=== PATIENT | female | born 1970 | race Caucasian/White ===

== ENCOUNTER 2018-02-01 13:47 | Emergency (ER) | payer MEDICAID ==
[~2018-02-01] VITALS: Ht 160 cm; Wt 65.0 kg
[2018-02-01] MEDS ORDERED: ALBU18HF2 INH (14:11)
[2018-02-01 15:40] VITALS: BP 124/74
== END 2018-02-01 15:35 | disposition home or self-care (01) ==
LOC: ER 14:03
DX: J20.9 Acute bronchitis, unspecified (principal); J45.909 Unspecified asthma, uncomplicated; Z87.01 Personal history of pneumonia (recurrent)
CPT/HCPCS: 71045; 99283

== ENCOUNTER 2023-08-02 10:51 | Inpatient (IN) | payer MEDICAID ==
[2023-07-29 11:47] LABS: BASOPHILS % (AUTO) 0.5 % (0-1); EOSINOPHILS # (AUTO) 0.1 X10'3 (0-0.9); EOSINOPHILS % (AUTO) 1.6 % (0-6); LYMPHOCYTES # (AUTO) 2.1 X10'3 (1.1-4.8); MEAN CORPUSCULAR HEMOGLOBIN 30.9 PG (27.0-31.0); MEAN CORPUSCULAR HGB CONC 33.3 g/dL (33.0-36.5); MEAN CORPUSCULAR VOLUME 93.1 FL (78-98); MEAN PLATELET VOLUME 7.3 FL (7.4-10.4); MONOCYTES # (AUTO) 0.4 X10'3 (0-0.9); MONOCYTES % (AUTO) 4.9 % (2-12); NEUTROPHILS # (AUTO) 5.7 X10'3 (1.8-7.7); PRE OP HEMATOCRIT 39.9 % (35.0-45.0); PRE OP HEMOGLOBIN 13.3 g/dL (12.0-16.0); PRE OP PLATELET COUNT 280 X10'3 (140-440); PRE OP WHITE BLOOD COUNT 8.4 10'3 (4.8-10.8); RED BLOOD COUNT 4.29 X10'6 (4.20-5.60)
[2023-07-29 12:09] LABS: ALBUMIN/GLOBULIN RATIO 1.1 (1.1-1.5); ALKALINE PHOSPHATASE 77 IU/L (46-116); BLOOD UREA NITROGEN 15 MG/DL (7-18); BUN/CREATININE RATIO 17.6 (10.0-20.0); CALCIUM 8.9 MG/DL (8.5-10.1); CHLORIDE 103 MMOL/L (99-107); CREATININE 0.85 MG/DL (0.40-0.90); PRE OP ALT 23 U/L (30-65); PRE OP ANION GAP 10 (8-16); PRE OP AST 17 U/L (10-37); PRE OP BILIRUB, TOTAL 0.3 MG/DL (0.0-1.0); PRE OP GLUCOSE 104 MG/DL (70-104); PRE OP POTASSIUM 3.5 MMOL/L (3.4-5.1); PRE OP SODIUM 141 MMOL/L (135-145); TOTAL CARBON DIOXIDE 27.8 MMOL/L (24-32); TOTAL PROTEIN 7.5 G/DL (6.4-8.2); eGFR 71 ML/MIN
[~2023-08-02] VITALS: Ht 160 cm; Wt 77.1 kg
[2023-08-02] VITALS (27 sets, daily range): BP systolic 125–177; BP diastolic 70–95; PULSE 67–96; RESP 11–20; TEMP 97.9–98.3; O2SAT 90–98
[2023-08-02] MEDS: albuterol 2.5 MG/3 ML nebule NEB ONE (05:30)
[~2023-08-02 10:51] MED LIST: BUDE10.2 INH; DESV50TA PO; ESTR0.6261 PO; GABA-535 PO; LEVO50CA4 PO; OMEP20TA43 PO; TIOT18CA3 INH
[2023-08-02] MEDS ORDERED: labetalol 20mg/4ml (5mg/ml) syringe IV PRN (12:25)
[2023-08-02] MEDS ORDERED: morphine 2 MG/ML inj. syringe IV PRN (12:25)
[2023-08-02] MEDS ORDERED: fentaNYL/PF 50MCG/1 ML 2ML syringe IV PRN (12:25)
[2023-08-02] MEDS: ringers solution, lacted 1,000 ML IV SCH ×2 (12:25→13:46)
[2023-08-02] MEDS: cefazolin 2gm/D5W 100mL 100 ML IV ONE (13:45)
[2023-08-02] MEDS: famotidine 20mg tablet PO ONE (13:46)
[2023-08-02] MEDS ORDERED: BUPIVAcaine/PF 2.5mg/ml (0.25%) 10ml vial ONE (14:34)
[2023-08-02] MEDS ORDERED: LIDOcaine 1% (10mg/ml)w/preservative inj. 20ml MDV ONE (14:34)
[2023-08-02] MEDS ORDERED: sevoflurane 250ml liquid IH ONE (15:07)
[2023-08-02] MEDS ORDERED: rocuronium 10mg/ml inj IV ONE ×2 (15:10)
[2023-08-02] MEDS ORDERED: midazolam 1 mg/ML 2ml injection ONE (15:10)
[2023-08-02] MEDS ORDERED: LIDOcaine 2% (20mg/ml) 5ml vial ONE (15:10)
[2023-08-02] MEDS ORDERED: ondansetron/PF 4mg/2ml inj ONE (15:10)
[2023-08-02] MEDS ORDERED: propofol inj 20 ML IV ONE (15:10)
[2023-08-02] MEDS ORDERED: fentaNYL /PF 50mcg/ml 5ml ampule ONE (15:10)
[2023-08-02] MEDS ORDERED: acetaminophen 1,000mg/100ml IV 100 ML IV ONE (15:11)
[2023-08-02] MEDS: BUPIVAcaine/PF 2.5mg/ml (0.25%) 10ml vial IJ ONE (15:30)
[2023-08-02] MEDS ORDERED: labetalol 20mg/4ml (5mg/ml) syringe IV ONE (15:41)
[2023-08-02] MEDS ORDERED: sugammadex 200mg/2ml injection IV ONE (16:54)
[2023-08-02] MEDS ORDERED: naloxone 0.4 mg/ml inj IV PRN (17:10)
[2023-08-02] MEDS: morphine 4 MG/ML inj SYRINge IV PRN (17:18)
[2023-08-02] MEDS: ondansetron/PF 4mg/2ml inj IV PRN ×2 (17:31→23:18)
[2023-08-02] MEDS: fentaNYL/PF 50MCG/1 ML 2ML syringe IV PRN (17:31)
[2023-08-02] MEDS: HYDROmorph/NS 0.2 mg/ml PCA 100 ML IV SCH (18:02)
[2023-08-02] MEDS: hydrALAZINE 20mg/ml inj. IV PRN (18:07)
[2023-08-02] MEDS ORDERED: BUDESONIDE 180 MCG AER.POW.BA INH SCH (20:00)
[2023-08-02] MEDS: budesonide 0.5mg/2ml UD nebule IH SCH (20:08)
[2023-08-02] MEDS: normal saline 1000ml 1,000 ML IV SCH (20:27)
[2023-08-02] MEDS: gabapentin 400mg capsule PO SCH (23:18)
[2023-08-03 02:00] VITALS: BP 127/74; PULSE 77; RESP 16; TEMP 98.1; O2SAT 94
[2023-08-03 06:50] VITALS: BP 125/71; PULSE 85; RESP 14; TEMP 97.6; O2SAT 95
[2023-08-03 07:30] VITALS: RESP 14; O2SAT 95
[2023-08-03] MEDS ORDERED: proCHLORperazine 10 MG/2 ml inj IM ONE (07:50)
[2023-08-03 07:54] VITALS: PULSE 79; RESP 18; O2SAT 98
[2023-08-03 07:59] VITALS: PULSE 87; RESP 16
[2023-08-03] MEDS: oxyCODONE/APAP 5-325mg tablet PO ONE (08:14)
[2023-08-03] MEDS: levoTHYROXINE 25mcg tablet PO SCH (08:15)
[2023-08-03] MEDS: pantoprazole 40mg Tablet.DR PO SCH (08:15)
[2023-08-03] MEDS: venlafaxine 25mg tablet PO SCH (08:15)
[2023-08-03] MEDS: proCHLORperazine 10 MG/2 ml inj IV ONE (08:20)
[2023-08-03] MEDS: PCA WASTE DOCUMENTATION 1 MG ML MC SCH (08:38)
[2023-08-03 12:07] VITALS: BP 120/58; PULSE 78; RESP 14; TEMP 98.4; O2SAT 93
[2023-08-03] MEDS ORDERED: OXYC-145 PO (12:27)
[2023-08-04] MEDS ORDERED: ESTROGEN CONJUGATED 0.9 MG PO SCH (08:00)
== END 2023-08-03 15:25 | disposition home or self-care (01) | DRG 220 ==
LOC: PAS IN 12:14 → INTOOBSV 12:14 → UNDOADMOB 12:14 → OBSVTOIN 17:19 → SUR 3N 17:19 → PAS IN 19:00
PROVIDERS: ADMIT Surgery; ATTEND Surgery
PROC: 8E0W4CZ Robotic Assisted Procedure of Trunk Region, Percutaneous Endoscopic Approach (ICD-10-PCS; 2023-08-02)
PROC: 0BUT4JZ Supplement Diaphragm with Synthetic Substitute, Percutaneous Endoscopic Approach (ICD-10-PCS; principal; 2023-08-02 15:07)
DX: K44.9 Diaphragmatic hernia without obstruction or gangrene (principal); E03.9 Hypothyroidism, unspecified; F32.A Depression, unspecified; J45.909 Unspecified asthma, uncomplicated; K21.9 Gastro-esophageal reflux disease without esophagitis; I10 Essential (primary) hypertension; Z91.040 Latex allergy status; Z91.09 Other allergy status, other than to drugs and biological substances; Z88.2 Allergy status to sulfonamides; Z84.89 Family history of other specified conditions; Z80.8 Family history of malignant neoplasm of other organs or systems; Z82.49 Family history of ischemic heart disease and other diseases of the circulatory system; Z79.51 Long term (current) use of inhaled steroids
CPT/HCPCS: 36415; 71045; 80053; 82948; 85025; 87081; 93005; 94640; 94760; A4615; A4618; C1781; G0378; J0131; J0360; J0690; J0780; J1100; J1170; J2250; J2270; J2405; J2704; J3010; J3490; J7030; J7120

== ENCOUNTER 2023-09-21 10:55 | Emergency (ER) | payer MEDICAID ==
[~2023-09-21] VITALS: Ht 160 cm; Wt 69.4 kg
[~2023-09-21 10:55] MED LIST changes: +OXYC-145 PO
[2023-09-21 11:03] VITALS: BP 144/88; PULSE 83; RESP 16; TEMP 97.7; O2SAT 97
== END 2023-09-21 13:58 | disposition left against medical advice (07) ==
LOC: ER 10:55
DX: B37.89 Other sites of candidiasis (principal); Z88.2 Allergy status to sulfonamides; Z91.048 Other nonmedicinal substance allergy status; Z91.040 Latex allergy status; Z53.21 Procedure and treatment not carried out due to patient leaving prior to being seen by health care provider

== ENCOUNTER 2024-02-07 08:32 | Outpatient (CLI) | payer MEDICAID ==
[2024-02-07] MEDS ORDERED: regadenoson 0.4mg/5ml syringe IV ONE (10:15)
[2024-02-07] MEDS: sincalide inj 1.4 MCG in normal saline 100ml IV soln 98.6 ML IV ONE (11:25)
== END 2024-02-07 23:59 | disposition home or self-care (01) ==
LOC: NM 08:32
PROVIDERS: ATTEND Surgery
DX: K80.50 Calculus of bile duct without cholangitis or cholecystitis without obstruction (principal); R10.13 Epigastric pain
CPT/HCPCS: 78227; A9537; J2805

== ENCOUNTER 2024-03-22 12:18 | Day surgery (SDC) | payer MEDICAID ==
[2024-03-19 10:53] LABS: BASOPHILS % (AUTO) 0.7 % (0-1); EOSINOPHILS # (AUTO) 0.1 X10'3 (0-0.9); EOSINOPHILS % (AUTO) 2.4 % (0-6); LYMPHOCYTES # (AUTO) 1.9 X10'3 (1.1-4.8); LYMPHOCYTES % (AUTO) 37.4 % (21-51); MEAN CORPUSCULAR HGB CONC 33.8 g/dL (33.0-36.5); MEAN CORPUSCULAR VOLUME 94.5 FL (78-98); MEAN PLATELET VOLUME 7.2 FL (7.4-10.4); MONOCYTES # (AUTO) 0.3 X10'3 (0-0.9); MONOCYTES % (AUTO) 5.5 % (2-12); NEUTROPHILS # (AUTO) 2.8 X10'3 (1.8-7.7); PRE OP HEMATOCRIT 39.2 % (35.0-45.0); PRE OP HEMOGLOBIN 13.3 g/dL (12.0-16.0); PRE OP PLATELET COUNT 256 X10'3 (140-440); PRE OP WHITE BLOOD COUNT 5.2 10'3 (4.8-10.8); RED BLOOD COUNT 4.15 X10'6 (4.20-5.60); RED CELL DISTRIBUTION WIDTH 12.9 % (11.5-14.5)
[2024-03-19 11:23] LABS: ALBUMIN/GLOBULIN RATIO 1.3 (1.1-1.5); ALKALINE PHOSPHATASE 81 IU/L (46-116); BLOOD UREA NITROGEN 11 MG/DL (7-18); BUN/CREATININE RATIO 14.7 (10.0-20.0); CHLORIDE 111 MMOL/L (99-107); CREATININE 0.75 MG/DL (0.40-0.90); PRE OP ALT 21 U/L (30-65); PRE OP ANION GAP 8 (8-16); PRE OP AST 13 U/L (10-37); PRE OP BILIRUB, TOTAL 0.4 MG/DL (0.0-1.0); PRE OP GLUCOSE 102 MG/DL (70-104); PRE OP POTASSIUM 4.3 MMOL/L (3.4-5.1); PRE OP SODIUM 144 MMOL/L (135-145); TOTAL CARBON DIOXIDE 24.6 MMOL/L (24-32); TOTAL PROTEIN 7.1 G/DL (6.4-8.2); eGFR 81 ML/MIN
[~2024-03-22] VITALS: Ht 160 cm; Wt 63.0 kg
[2024-03-22] VITALS (10 sets, daily range): BP systolic 98–144; BP diastolic 72–84; PULSE 70–89; RESP 12–22; TEMP 97.6; O2SAT 96–100
[~2024-03-22 12:18] MED LIST changes: +ALEN70TA80 PO; -OMEP20TA43 PO; -OXYC-145 PO; -TIOT18CA3 INH; +TIOT18CA8 PO; +TOP100T PO; +glucagon, human recombinant 1mg kit ONE; +ringers solution, lacted 1,000 ML IV SCH
[2024-03-22] MEDS: ceFAZolin 2gm in dextrose, iso 50 ML IV ONE (12:36)
[2024-03-22] MEDS: famotidine 20mg tablet PO ONE (14:53)
[2024-03-22] MEDS ORDERED: midazolam 1 mg/ML 2ml injection ONE (14:56)
[2024-03-22] MEDS ORDERED: fentaNYL/PF 50MCG/1 ML 2ML syringe ONE ×2 (14:56→15:16)
[2024-03-22] MEDS ORDERED: propofol inj 20 ML IV ONE ×2 (14:57→15:28)
[2024-03-22] MEDS: meperidine/PF 25mg/ml syringe IV ONE (16:31)
== END 2024-03-22 16:55 | disposition home or self-care (01) ==
LOC: PAS 12:18
PROVIDERS: ATTEND Surgery
DX: R13.19 Other dysphagia (principal); K31.1 Adult hypertrophic pyloric stenosis; Z79.899 Other long term (current) drug therapy; G43.909 Migraine, unspecified, not intractable, without status migrainosus; F32.A Depression, unspecified; Z88.2 Allergy status to sulfonamides; Z91.040 Latex allergy status
CPT/HCPCS: 36415; 43249; 74018; 74360; 80053; 82948; 85025; 93005; C1726; J0690; J2175; J2250; J2704; J3010; J7120; Z7506; Z7512; 76000; A4618; C1769; J1610

== ENCOUNTER 2024-04-11 12:36 | Outpatient (CLI) | payer MEDICAID ==
[~2024-04-11 12:36] MED LIST changes: -glucagon, human recombinant 1mg kit ONE; -ringers solution, lacted 1,000 ML IV SCH
== END 2024-04-11 23:59 | disposition home or self-care (01) ==
LOC: VAS 12:36
PROVIDERS: ATTEND Surgery
DX: G89.18 Other acute postprocedural pain (principal); R63.4 Abnormal weight loss
CPT/HCPCS: 93975

== ENCOUNTER 2024-08-30 08:49 | Day surgery (SDC) | payer MEDICAID ==
[2024-08-23 10:26] LABS: BASOPHILS % (AUTO) 0.3 % (0-1); EOSINOPHILS # (AUTO) 0.1 X10'3 (0-0.9); EOSINOPHILS % (AUTO) 0.9 % (0-6); LYMPHOCYTES # (AUTO) 1.4 X10'3 (1.1-4.8); LYMPHOCYTES % (AUTO) 22.3 % (21-51); MEAN CORPUSCULAR HEMOGLOBIN 31.7 PG (27.0-31.0); MEAN CORPUSCULAR HGB CONC 34.1 g/dL (33.0-36.5); MEAN CORPUSCULAR VOLUME 92.9 FL (78-98); MEAN PLATELET VOLUME 6.8 FL (7.4-10.4); MONOCYTES # (AUTO) 0.3 X10'3 (0-0.9); MONOCYTES % (AUTO) 4.5 % (2-12); NEUTROPHILS # (AUTO) 4.6 X10'3 (1.8-7.7); PRE OP HEMATOCRIT 41.8 % (35.0-45.0); PRE OP HEMOGLOBIN 14.3 g/dL (12.0-16.0); PRE OP PLATELET COUNT 275 X10'3 (140-440); PRE OP WHITE BLOOD COUNT 6.4 10'3 (4.8-10.8); RED CELL DISTRIBUTION WIDTH 12.6 % (11.5-14.5)
--- NOTE | 2024-08-23 10:26 | ELECTROCARDIOGRAPH REPORT ---
[facility] Test Date: 2024-08-23 Test Time: 10:22:11 Pat Name: SANTY BRANDT Department: [facility]-PRE-OP Patient ID: [id number] Room: Gender: F Content Editor: HALLIE : 1970 Requested By: BERT CHARLES Order Number: [id number] Reading MD: Dr. Josiah Murrell Measurements Intervals Stanley Rate: 86 P: 49 GA: 131 QRS: 7 QRSD: 111 T: 92 QT: 389 QTc: 466 Interpretive Statements Sinus rhythm Electronically Signed On 08-24-2024 8:19:[address] Josiah Murrell Please click the below link to view image of tracing.
[2024-08-23 10:45] LABS: ALBUMIN 4.7 G/DL (3.4-5.0); ALBUMIN/GLOBULIN RATIO 1.5 (1.1-1.5); ALKALINE PHOSPHATASE 88 IU/L (46-116); BLOOD UREA NITROGEN 18 MG/DL (7-18); BUN/CREATININE RATIO 19.8 (10.0-20.0); CALCIUM 9.2 MG/DL (8.5-10.1); CHLORIDE 105 MMOL/L (99-107); CREATININE 0.91 MG/DL (0.40-0.90); PRE OP ALT 22 U/L (30-65); PRE OP ANION GAP 10 (8-16); PRE OP AST 21 U/L (10-37); PRE OP BILIRUB, TOTAL 0.7 MG/DL (0.0-1.0); PRE OP GLUCOSE 103 MG/DL (70-104); PRE OP POTASSIUM 4.1 MMOL/L (3.4-5.1); PRE OP SODIUM 141 MMOL/L (135-145); TOTAL CARBON DIOXIDE 25.7 MMOL/L (24-32); TOTAL PROTEIN 7.9 G/DL (6.4-8.2); eGFR 65 ML/MIN
[2024-08-30] VITALS (12 sets, daily range): BP systolic 115–151; BP diastolic 66–98; PULSE 69–96; RESP 10–18; TEMP 98; O2SAT 95–99
[~2024-08-30] VITALS: Ht 160 cm; Wt 64.4 kg
[2024-08-30] MEDS: ceFAZolin 2gm/dext,iso 50mL 50 ML IV ONE (05:30)
[~2024-08-30 08:49] MED LIST changes: +ALBU8HFA INH; -ALEN70TA80 PO; +AMLO5TAB5 PO; +CYCL-920 PO; -ESTR0.6261 PO; +ESTR0.9T2 PO; -GABA-535 PO; -LEVO50CA4 PO; +LEVO50CA5 PO; +TIOT18CA3 INH; -TIOT18CA8 PO
[2024-08-30] MEDS: famotidine 20mg tablet PO ONE (09:29)
[2024-08-30] MEDS: ringers solution, lacted 1,000 ML IV SCH (09:29)
[2024-08-30] MEDS ORDERED: BUPIVAcaine 2.5mg/ml inj 50ml vial (contains preservative) ONE (10:14)
[2024-08-30] MEDS ORDERED: LIDOcaine 1% 30ml preserv. free vial ONE (10:14)
[2024-08-30] MEDS ORDERED: labetalol 20mg/4ml (5mg/ml) syringe IV PRN (11:00)
[2024-08-30] MEDS ORDERED: ringers solution, lacted 1,000 ML IV SCH (11:00)
[2024-08-30] MEDS ORDERED: morphine 2 MG/ML inj. syringe IV PRN (11:00)
[2024-08-30] MEDS ORDERED: fentaNYL/PF 50MCG/1 ML 2ML syringe IV PRN ×2 (11:00)
[2024-08-30] MEDS ORDERED: hydrALAZINE 20mg/ml inj. IV PRN (11:00)
[2024-08-30] MEDS ORDERED: midazolam 1 mg/ML 2ml injection ONE (11:14)
[2024-08-30] MEDS ORDERED: fentaNYL/PF 50MCG/1 ML 2ML syringe ONE (11:14)
[2024-08-30] MEDS ORDERED: acetaminophen 1,000mg/100ml IV 100 ML IV ONE (11:19)
[2024-08-30] MEDS ORDERED: ketorolac trometh 30MG/ML vial 30 MG/ML VIAL ONE (11:19)
[2024-08-30] MEDS ORDERED: propofol inj 20 ML IV ONE (11:19)
[2024-08-30] MEDS ORDERED: dexamethasone sod phosphate 4mg/ml inj. ONE (11:19)
[2024-08-30] MEDS ORDERED: LIDOcaine 2% (20mg/ml) 5ml vial ONE (11:20)
[2024-08-30] MEDS ORDERED: rocuronium 10mg/ml inj IV ONE (11:20)
[2024-08-30] MEDS ORDERED: glycopyrrolate 0.2mg/ml inj ONE (11:22)
[2024-08-30] MEDS ORDERED: sevoflurane 250ml liquid IH ONE (11:30)
[2024-08-30] MEDS: BUPIVAcaine/PF 2.5 mg/ml (0.25%) 30ml vial IJ ONE (11:35)
[2024-08-30] MEDS ORDERED: labetalol 20mg/4ml (5mg/ml) syringe IV ONE (11:38)
[2024-08-30] MEDS ORDERED: hydrALAZINE 20mg/ml inj. ONE (11:58)
[2024-08-30] MEDS: ondansetron/PF 4mg/2ml inj IV PRN (12:30)
[2024-08-30] MEDS: morphine 4 MG/ML inj SYRINge IV PRN (12:44)
--- NOTE | 2024-08-30 12:52 | OPERATIVE REPORT ---
Operative Report Providers to CC CC: FREDY CHARLES MD ~ Date of Procedure: Aug 30, 2024 Pre-Operative Diagnosis: Postprandial pain, chronic postoperative pain Post-Operative Diagnosis SAME as PRE-Op Procedure Performed Robotic assisted diagnostic laparoscopy Robotic assisted, laparoscopic revision of gastropexy Surgeon: Fredy Charles MD [facility] Supervisor Boiler Repair None Anesthesiologist: Luis Miguel De León Type of Anesthesia: General Findings: Permanent sutures adjacent to the left hillary and medial portion of the left diaph ragm removed in hopes to resolve chronic postprandial left shoulder pain Absorbable sutures used to revise the gastropexy Wound class I Complications None Prosthetics\Implants used: None Estimated Blood Loss: Minimal Specimen Removed: Suture material from the left hillary and medial aspect of the left diaphragm excised and discarded Description of Procedure: Patient is a 53-year-old female who is one year status post robotic assisted, laparoscopic paraesophageal hernia repair with bioabsorbable mesh. This involved fundic augmentation and gastropexy to the medial aspect of the left hemidiaphragm and onto the left anterior abdominal wall. Patient developed chronic postprandial left shoulder pain. Despite multimodal pain management with both NSAIDs, gabapentin and opioids, patient has persistent symptoms. Patient was referred to interventional pain management who was not able to recommend any treatment plan with regards to nerve blocks. Risks and benefits involving removing the diaphragmatic sutures and revising the gastropexy were discussed with the patient. Patient was brought to the operating room and identified by the nursing staff and the attending physician. Patient was placed supine and general anesthesia was induced. Preoperative antibiotics were given. Veress needle technique was used to gain access to the abdomen insufflation occurred without incident. Abdomen was entered through the left upper quadrant with an 8.5 mm optical trocar. Abdomen was surveyed. There were no adhesions. Additional 8.5 mm robotic trocars as well as a 5 mm assistant gm of content & delivery port were placed in the left mid abdomen. Patient was placed in reverse Trendelenburg position. The Prot-On robotic arm was docked to the patient and instruments were guided into the abdomen under laparoscopic visualization. Left lobe of the liver was lifted and with the assistant gm of content & delivery port grasper inspected. Hernia repair appeared intact as did the fundic augmentation and gastropexy. Medial aspect of the gastropexy at the level of the left hillary was dissected away and the permanent suture material was removed along the fundic aspect of the gastropexy. Suture was removed and set aside. Only remaining permanent suture was along the anterior abdominal wall and the greater curvature of the stomach. The gastropexy was then revised at the level of the left hillary and medial aspect of the left hemidiaphragm using an absorbable suture. Good approximation was obtained with the gastropexy. Suture material was retrieved. Ports were removed and the abdomen was allowed to deflate. Skin was closed at all sites with 4-0 Monocryl sutures in a subcuticular fashion. Dermabond was applied. Patient was awakened and taken to the postanesthesia care unit in stable condition. Counts repoted as correct: Yes FREDY CHARLES MD Aug 30, 2024 12:52
[2024-08-30] MEDS: proCHLORperazine 10 MG/2 ml inj IV ONE (13:01)
[2024-08-30] MEDS ORDERED: HYDROmorphone/PF 0.2 MG/ML SYRINGE IV PRN (13:15)
[2024-08-30] MEDS: HYDROmorphone/PF 0.2 MG/ML SYRINGE IV PRN (13:23)
[2024-08-30] MEDS: oxyCODONE/APAP 5-325mg tablet PO PRN (13:41)
== END 2024-08-30 14:20 | disposition home or self-care (01) ==
LOC: PAS 08:49
PROVIDERS: ATTEND Surgery
DX: G89.28 Other chronic postprocedural pain (principal); M25.512 Pain in left shoulder; I10 Essential (primary) hypertension; F32.A Depression, unspecified; Z98.890 Other specified postprocedural states; G40.909 Epilepsy, unspecified, not intractable, without status epilepticus; Z88.2 Allergy status to sulfonamides; Z91.040 Latex allergy status; Z90.710 Acquired absence of both cervix and uterus; Z79.899 Other long term (current) drug therapy
CPT/HCPCS: 36415; 49320; 80053; 82948; 85025; 93005; J0131; J0360; J0780; J1100; J1171; J1885; J2003; J2250; J2270; J2405; J2704; J3010; J3490; J7030; J7120; S2900; Z7506; Z7508; Z7512; A4215; A4618; A7000